=== PATIENT | male | born 1950 | race Hispanic/Latino ===

== ENCOUNTER 2023-06-13 06:58 | Day surgery (SDC) | payer OTHER ==
[~2023-06-13] VITALS: Ht 167.6 cm; Wt 76.9 kg
[2023-06-13] VITALS (14 sets, daily range): BP systolic 116–152; BP diastolic 60–86; PULSE 70–109; RESP 12–24
[~2023-06-13 06:58] MED LIST: CETI10TA57 PEG; FAMO-290 PEG; LEVE100S7 PEG
[2023-06-13] MEDS ORDERED: PROPOFOL 10 MG/ML 20ML VIAL IV ONE (09:15)
[2023-06-13] MEDS ORDERED: LIDOCAINE HCL 1% 20 ML VIAL ONE (09:16)
== END 2023-06-13 11:02 ==
LOC: DAH 06:58
PROVIDERS: ATTEND Internal Medicine Gastroenterology
DX: R13.12 Dysphagia, oropharyngeal phase (principal); K94.23 Gastrostomy malfunction; J44.9 Chronic obstructive pulmonary disease, unspecified; E78.2 Mixed hyperlipidemia; R12 Heartburn; H40.9 Unspecified glaucoma; Z83.3 Family history of diabetes mellitus; Z79.1 Long term (current) use of non-steroidal anti-inflammatories (NSAID); Z82.49 Family history of ischemic heart disease and other diseases of the circulatory system; Z88.8 Allergy status to other drugs, medicaments and biological substances; Z79.899 Other long term (current) drug therapy; Z98.890 Other specified postprocedural states
CPT/HCPCS: 43246; J2704; A4620; A4215 ×2; A4223; A7002; A4222; A4221; A4663; J7030; A4606; J3490